=== PATIENT | female | born 1975 | race African-American/Black ===

== ENCOUNTER 2017-07-06 10:53 | Emergency (ER) | payer OTHER ==
[~2017-07-06] VITALS: Ht 157.5 cm; Wt 72.6 kg
[~2017-07-06 10:53] MED LIST: BIAXIN 500 MG500 M2; CLARITIN10 M2 PO; DOXYCYCLINE 10100 MG PO; MEDROLDOSEPACK PO; PEPCID40 MG PO; SINGULAIR 10 MG10 M1 PO; VALACYCLOVIR500 MG; VENTOLIN HFA 1818 GM INH
[2017-07-06] MEDS ORDERED: NAPROSYN500 MG PO (11:18)
[2017-07-06] MEDS ORDERED: HYDROCODONE-AP1 EAC6 PO (11:18)
[2017-07-06 11:31] LABS: ABSOLUTE EOSINOPHILS 0.1 thou/uL (0.0-0.7); ABSOLUTE LYMPHOCYTES 2.2 thou/uL (0.8-5.3); ABSOLUTE MONOCYTES 0.5 thou/uL (0.0-1.2); ABSOLUTE NEUTROPHILS 4.1 thou/uL (1.6-8.1); BASOPHILS 0.5 %; EOSINOPHILS 1.9 %; HEMATOCRIT 42.2 % (37.0-47.0); HEMOGLOBIN 14.4 gm/dL (12.0-15.0); LYMPHOCYTES 31.2 %; MCH 30.8 pg (26.0-34.0); MCHC 34.1 g/dL (28.0-37.0); MCV 90.1 fL (80.0-100.0); MONOCYTES 6.9 %; MPV 8.3 fl. (7.2-11.1); NUCLEATED RBCS 0 /100WBC; PLATELET COUNT* 231 thou/uL (150-400); POLYS 59.5 %; RBC 4.69 mil/uL (4.20-5.00); RDW-CV 12.7 % (10.5-14.5)
[2017-07-06 11:38] LABS: URINE BILIRUBIN NEGATIVE (Negative); URINE BLOOD TRACE (Negative); URINE CLARITY CLEAR; URINE COLOR YELLOW; URINE GLUCOSE-RANDOM NEGATIVE (Negative); URINE KETONES NEGATIVE (Negative); URINE LEUKOCYTES-REFLEX NEGATIVE (Negative); URINE NITRITE-REFLEX NEGATIVE (Negative); URINE PROTEIN TRACE (Negative); URINE UROBILINOGEN 0.2 E.U./dl (0.2-1.0)
[2017-07-06 11:42] LABS: CALCIUM 9.2 mg/dL (8.5-10.1); CREATININE 0.7 mg/dL (0.6-1.3); POTASSIUM 3.9 mmol/L (3.5-5.1)
[2017-07-06 11:46] LABS: ALBUMIN 3.7 g/dL (3.4-5.0); TOTAL BILIRUBIN 0.5 mg/dL (<0.1-1.0); TOTAL PROTEIN 7.3 g/dL (6.4-8.2)
[2017-07-06] MEDS ORDERED: BACTRIM DS TAB1 EACH PO (12:13)
[2017-07-06] MEDS ORDERED: BENTYL 20 MG TA20 M1 PO (12:13)
[2017-07-06 12:44] VITALS: BP 113/76
== END 2017-07-06 12:45 | disposition home or self-care (01) ==
LOC: M.ERS 10:53
PROVIDERS: Emergency Medicine Emergency Medical Services
DX: R19.7 Diarrhea, unspecified (principal); J45.909 Unspecified asthma, uncomplicated; Z90.710 Acquired absence of both cervix and uterus; Z88.1 Allergy status to other antibiotic agents; Z88.0 Allergy status to penicillin

== ENCOUNTER 2017-07-21 13:39 | Emergency (ER) | payer OTHER ==
[~2017-07-21] VITALS: Ht 157.5 cm; Wt 69.0 kg
[~2017-07-21 13:39] MED LIST changes: +BACTRIM DS TAB1 EACH PO; +BENTYL 20 MG TA20 M1 PO; +HYDROCODONE-AP1 EAC6 PO; +NAPROSYN500 MG PO
[2017-07-21] MEDS ORDERED: NORCO 5-325 TA1 EACH PO (16:39)
[2017-07-21] MEDS ORDERED: NAPROSYN500 MG PO (16:39)
[2017-07-21] MEDS ORDERED: DOXYCYCLINE 10100 M1 PO (16:40)
[2017-07-21] MEDS ORDERED: AFRIN30 ML NASAL (16:41)
[2017-07-21 17:01] VITALS: BP 108/73
[2017-07-21] MEDS ORDERED: DIFLUCAN150 MG PO (17:06)
[2017-07-22] MEDS ORDERED: VIT D2 PO (09:04)
[2017-07-22] MEDS ORDERED: REGLAN 10 MG TA10 MG PO (09:05)
[2017-07-22] MEDS ORDERED: ACETAMINOPHEN-1 EAC1 PO (09:05)
[2017-07-22] MEDS ORDERED: BACTRIM DS TAB1 EACH PO (09:05)
== END 2017-07-21 17:01 | disposition home or self-care (01) ==
LOC: M.ERS 13:39
DX: S02.82XA Fracture of other specified skull and facial bones, left side, initial encounter for closed fracture (principal); S01.112A Laceration without foreign body of left eyelid and periocular area, initial encounter; J45.909 Unspecified asthma, uncomplicated; Z90.710 Acquired absence of both cervix and uterus; Z88.1 Allergy status to other antibiotic agents; Z88.0 Allergy status to penicillin; Z88.8 Allergy status to other drugs, medicaments and biological substances; W01.0XXA Fall on same level from slipping, tripping and stumbling without subsequent striking against object, initial encounter; Y93.89 Activity, other specified; Y92.89 Other specified places as the place of occurrence of the external cause; Y99.8 Other external cause status

== ENCOUNTER 2017-07-22 08:46 | Inpatient (IN) | payer OTHER ==
[2017-07-22] VITALS (12 sets, daily range): BP systolic 91–122; BP diastolic 49–80
[~2017-07-22] VITALS: Ht 162.6 cm; Wt 71.7 kg
[~2017-07-22 08:46] MED LIST changes: +AFRIN30 ML NASAL; +DIFLUCAN150 MG PO; +DOXYCYCLINE 10100 M1 PO; +NORCO 5-325 TA1 EACH PO
[2017-07-22] MEDS ORDERED: VIT D2 PO (09:04)
[2017-07-22] MEDS ORDERED: ACETAMINOPHEN-1 EAC1 PO (09:05)
[2017-07-22] MEDS ORDERED: REGLAN 10 MG TA10 MG PO (09:05)
[2017-07-22] MEDS ORDERED: BACTRIM DS TAB1 EACH PO (09:05)
--- NOTE | 2017-07-22 09:55 | NUR ---
DURING STROKE SWALLOW SCREEN PT STATES IT HURTS TO SWALLOW UPON FIRST AND SECOND SIP OF WATER. NO COUGHING, DROOLING OR GAGGING NOTED.
[2017-07-22 09:58] LABS: ABSOLUTE EOSINOPHILS 0.1 thou/uL (0.0-0.7); ABSOLUTE LYMPHOCYTES 1.9 thou/uL (0.8-5.3); ABSOLUTE MONOCYTES 0.4 thou/uL (0.0-1.2); ABSOLUTE NEUTROPHILS 2.8 thou/uL (1.6-8.1); BASOPHILS 0.5 %; EOSINOPHILS 2.4 %; HEMATOCRIT 39.8 % (37.0-47.0); HEMOGLOBIN 13.3 gm/dL (12.0-15.0); MCH 30.1 pg (26.0-34.0); MCHC 33.4 g/dL (28.0-37.0); MCV 90.3 fL (80.0-100.0); MONOCYTES 7.8 %; MPV 8.4 fl. (7.2-11.1); NUCLEATED RBCS 0 /100WBC; PLATELET COUNT* 197 thou/uL (150-400); POLYS 53.3 %; RBC 4.41 mil/uL (4.20-5.00); RDW-CV 12.8 % (10.5-14.5); WBC 5.2 thou/uL (4.0-11.0)
[2017-07-22 10:04] LABS: APTT 25.3 Seconds (25.0-31.3); PROTIME 10.1 Seconds (9.20-11.50)
[2017-07-22 10:45] LABS: ALBUMIN 3.4 g/dL (3.4-5.0); CALCIUM 8.7 mg/dL (8.5-10.1); CREATININE 0.7 mg/dL (0.6-1.3); POTASSIUM 3.5 mmol/L (3.5-5.1); TOTAL BILIRUBIN 0.7 mg/dL (<0.1-1.0); TOTAL PROTEIN 6.7 g/dL (6.4-8.2)
[2017-07-22 10:50] LABS: URINE BILIRUBIN NEGATIVE (Negative); URINE BLOOD TRACE (Negative); URINE CLARITY CLEAR; URINE COLOR YELLOW; URINE GLUCOSE-RANDOM NEGATIVE (Negative); URINE KETONES NEGATIVE (Negative); URINE LEUKOCYTES-REFLEX NEGATIVE (Negative); URINE NITRITE-REFLEX NEGATIVE (Negative); URINE PROTEIN TRACE (Negative); URINE UROBILINOGEN 0.2 E.U./dl (0.2-1.0)
[2017-07-22 10:59] LABS: AMP/METHAMP POSITIVE (Negative); BARBITURATES Negative (Negative); BENZODIAZEPINES Negative (Negative); COCAINE Negative (Negative); METHADONE Negative (Negative); OPIATES POSITIVE (Negative); PCP Negative (Negative); THC Negative (Negative)
--- NOTE | 2017-07-22 14:47 | NUR ---
1410 PT RECEIVED FROM ER PER CART.C/O CIRCUMORAL NUMNESS. SEE ADMISSION ASSESSMENT AND NIH SCORING
--- NOTE | 2017-07-22 15:50 | NUR ---
1500 WORKED WITH OT. TO MRI WITH THIS NURSE
--- NOTE | 2017-07-22 17:32 | NUR ---
PATIENT ADMITTED TO ICU FOR CLOSED HEAD INJURY. VSS. MRI COMPLETED. UNSTEADY WHEN UP. FIANCE AND CHILDREN HAVE VISTED
[2017-07-23] VITALS (12 sets, daily range): BP systolic 80–110; BP diastolic 37–73
--- NOTE | 2017-07-23 04:16 | NUR ---
PROGRESSING TOWARD GOALS. PT HAS BEEN ORIENTED X4 THROUGHOUT THIS SHIFT. SHE CONTINUES TO REPORT DIPLOPIA BUT OTHERWISE NEUROLOGICAL ASSESSMENT IS NEGATIVE. ASSISTED PT TO BSC X1 WITH SBA ONLY, STEADY OF FEET. PT REPORTED 8/10 LEFT MARIO-ORBITAL PAIN, PRN FENTANYL GIVEN ORDERED WITH COMPLETE RELIEF OF PAIN. SIGNIFICANT MARIO-ORBITAL EDEMA WITH BRUISING NOTED, LEFT EYE OPENING IS APPROXIMATELY HALF THAT OF THE RIGHT EYE. SUTURES TO LEFT EYEBROW INTACT, WELL APPROXIMATED WITH NO DRAINAGE. PT TURNS SELF IN BED WITH EASE, ADEQUATE TO RELIEVE PRESSURE. CALL LIGHT WITHIN REACH.
--- NOTE | 2017-07-23 08:55 | NUR ---
0730 ASSUMED CARE OF PATIENT. PLEASE SEE DOCUMENTED ASSESSMENT. HEAPTIC DRAIN DRESSING SATURATED AND CHANGED CHARTED. BATHED. OXYGEN SAT DROPPED TO MID 80'S ON 3LPM NASAL CANNULA DURING BATH. RETURNED TO HOME CPAP WITH 6-7 LPM OXYGEN INPUT. RT NOTIFIED
--- NOTE | 2017-07-23 08:57 | NUR ---
3661 ASSUMED CARE OF PATIENT. PLEASE SEE DOCUMENTED ASSESSMENT. DR BROOKE TO SEE PATIENT. NEUROLOGICAL ASSESSMENT WNL
--- NOTE | 2017-07-23 09:10 | NUR ---
PT IS NOW TELE STATUS
--- NOTE | 2017-07-23 10:18 | NUR ---
PATIENT IS RESTLESS AND WANTING TO LEAVE. FIANCE WANTING PT TO BE PATIENT AND WAIT FOR NEUROLOGY INPUT. PT STATES HER VISION IS NORMAL NOW
--- NOTE | 2017-07-23 11:34 | NUR ---
DR HENAO TO SEE PATIENT AND ORDERS NOTED.
--- NOTE | 2017-07-23 14:04 | NUR ---
EEG COMPLETED. PT INFORMED THAT MRI'S ARE ORDERED FOR AM.
--- NOTE | 2017-07-23 15:31 | NUR ---
PT TO MOVE TO ROOM 305. PATIENT AND SIGNIFICANT OTHER INFORMED OF PLAN TO TRANSFER. SBAR FAXED TO THIRD FLOOR UNIT
--- NOTE | 2017-07-23 16:35 | NUR ---
PATIENT TRANSFERRED TO ROOM 305 VIA WHEELCHAIR FROM ICU AT 1600. LIFE ENRICHMENT DIRECTOR RESUMED. AGREE WITH PREVIOUS ASSESSMENT. SALINE LOCK PATENT. BRUISE NOTED TO LEFT EYE, STATES DOUBLE VISION IS IMPROVED FROM ADMISSION. ICE PACK PROVIDED TO LEFT EYE PER REQUEST AND IBUPROFEN. CALL LIGHT WITHIN REACH. WILL CONTINUE WITH PLAN OF CARE.
--- NOTE | 2017-07-23 18:28 | NUR ---
PATIENT HAS BEEN A/O SINCE TRANSFERRING TO ROOM 305. CONTINUES ON COMMUNITY OUTREACH COORDINATOR, TRACING NSR. UP SBA IN ROOM. MEDICATED FOR HEADACHE WITH GOOD RELIEF. SALINE LOCK PATENT. TOLERATING DIET. TO HAVE MRIs COMPLETED IN AM. HOURLY ROUNDING COMPLETED. CALL LIGHT WITHIN REACH. WILL CONTINUE WITH PLAN OF CARE.
[2017-07-24 00:02] VITALS: BP 107/42
[2017-07-24 04:43] VITALS: BP 107/51
--- NOTE | 2017-07-24 05:41 | NUR ---
PT SLEPT MOST OF SHIFT. ASSESSMENT DOCUMENTED. MEDS GIVEN PER E-MAR. IV PATENT. PT SHOWERED THIS SHIFT. NO REPORTS OF PAIN OR NAUSEA. TELE MONITOR IN PLACE READING SINUS RHYTHYM. WILL CONTINUE WITH PLAN OF CARE.
[2017-07-24 08:00] VITALS: BP 109/58
--- NOTE | 2017-07-24 10:52 | NUR ---
PT'S MEDICAL CHART REVIEWED AND STATUS DISCUSSED W/ NSG. PT IS UP AD ESTEFANY IN ROOM DEMONSTRATING STABLE GAIT AND TRANSFERS. PT INDICATES NO CONCERNS W/ DISCHARGE TO HOME. NO FURTHER ACUTE PT SERVICES ARE INDICATED.
--- NOTE | 2017-07-24 11:06 | NUR ---
ASSUMED CARE THIS AM. A/O, UP AD ESTEFANY, STEADY GAIT. DENIES PAIN, LAC TO LEFT BROW CLEAN/DRY, EDGES APPROX, SUTURES INTACT. MRI COMPLETE, CLEARED WITH NEUROLOGY FOR DISCHARGE, AWAITING HOSPITALIST EVAL/DISCHARGE. D/C PLAN IS TO RETURN TO HOME UNDER SELF CARE WITH AND FAMILY.
--- NOTE | 2017-07-24 13:07 | NUR ---
SW was informed by nurse that pt to dc home today with fiance and to self care. No dc needs expressed. SW to remain available to assist if needs arise.
[2017-07-24 13:32] VITALS: BP 109/58
[2017-07-24 14:21] VITALS: BP 109/58
--- NOTE | 2017-07-25 17:26 | EEG ---
[address] [address] EEG STUDY REPORT Name: TRINA ALEXANDRA Room: [address] IN M.R.#: [id number] Admission: 07/22/17 Attend Phys: Linsey Jung MD Discharge: 07/24/17 Date of : 79 Report #: [id number] THIS REPORT FOR: //name// CC: Linsey Easonnton DATE OF SERVICE: 07/23/2017 This patient is being evaluated for altered mental status after a head injury. EEG was done by placing the electrodes by standard 10/20 system of electrode placement. Both referential and sequential montages were used for recording. Background activity in this patient's EEG is about 10 Hz and 30 microvolts. It is a symmetrical activity. Photic stimulation was unremarkable. Throughout the record, no active epileptiform activity was noticed. IMPRESSION: This patient's EEG is unremarkable. Thank you very much for this referral. <ELECTRONICALLY SIGNED> By: Steve Keane MD 07/25/17 1726 1556 1625Steve Keane MD /nt
--- NOTE | 2017-07-25 17:26 | CON ---
[address] [address] CONSULTATION Name: IBRAHIMAJAMARCUSMARIO Tineo Room: [address] M.R.#: [id number] Admission: 07/22/17 Attend Phys: Linsey Jung MD Discharge: 07/24/17 Date of : 79 Report #: [id number] THIS REPORT FOR: //name// CC: Linsey Abdi DATE OF SERVICE: 07/23/2017 HISTORY OF PRESENT ILLNESS: This is a 41-year-old female patient who was evaluated by me for any neurological etiology for the patient's altered mental status. The patient's records were reviewed and the patient was discussed with the nurses looking after this patient. The patient indicates that she was confused yesterday, but she is getting better. Record indicates that she was seen in the Emergency Room on 07/21/2017. She gives a history that she was having a bowel preparation for colonoscopy. She tripped and fell. It looks like she hit pretty hard and she has a fracture of the orbital area. She is going to see an pleater in that regard. She woke up yesterday with altered mental status. She said she has improved, but not completely back to her baseline. REVIEW OF SYSTEMS: Indicate that she is complaining of some neck pain. This happened after she had this fall. She had a prior history of hysterectomy and Crohn's disease. She also has a prior history of asthma. I carried out 14-point review of system and this was her relevant 14-point review of system. PAST MEDICAL HISTORY: Negative for any seizures or confusion like this. FAMILY HISTORY: Unremarkable. SOCIAL HISTORY: She works at home and she indicates that she is not under much stress. She does not smoke or drink any alcohol. PHYSICAL EXAMINATION: Indicate that she is alert. She is responsive. She can tell me what month it is. She knows an approximate date. Her speech looks unremarkable. Memory is getting better. Fund of knowledge is getting better. Cranial nerve examination 2-12 the best it could be carried appear unremarkable. I believe she can see reasonably well on the left side. She needs a detailed ophthalmological examination later on. Pupil looks symmetrical. She has symmetrical strength, sensation, reflexes and tone in all 4 extremities. There is no meningeal sign. She does complain of some neck pain on the neck movement. There is no carotid bruit. Neuromuscular examination looks symmetrical. Position sense looks intact. Cardiac examinations appear unremarkable. Pulses appear to be palpable. No respiratory difficulty or rhonchi. Blood pressure is running somewhat low at 94/73, respirations 15, pulse is 86, temperature is 98.9. [place] [address] CONSULTATION Name: TRINA ALEXANDRA Room: [address] M.R.#: [id number] Admission: 07/22/17 Attend Phys: Linsey Jung MD Discharge: 07/24/17 Date of : 79 Report #: [id number] LABORATORY DATA: Indicate a normal white count. She did have an MRI of the brain, which looks mostly unremarkable. IMPRESSION: I suspect this patient had concussion when she fell down and she has some postconcussion confusion from which she is becoming better. I do not believe there is any primary central nervous system pathology going on, but she is having multiple symptoms and those include some headache which is also becoming better and some memory issues and some neck pain. Because of that, I think it will be desirable to make sure she does not have any dissections or any neck pathology. All of it is considered less likely. I will also check an EEG because of this performed confusion. If all these tests are normal, then I think neurological cause will be even less likely. RECOMMENDATIONS: 1. MRI of the head and neck. 2. MRI of C-spine. 3. EEG. 4. TSH, vitamin B12. 5. If those things are okay, from neurological perspective, I do not think any further testing is needed. That is especially true if she come back to her baseline. I did discuss with her the need to avoid any further concussions and she understood that. Thank you very much for this referral. <ELECTRONICALLY SIGNED> By: Steve Keane MD 07/25/17 1726 1128 00Steve Keane MD /nt
== END 2017-07-24 16:00 | disposition home or self-care (01) | DRG 564 ==
LOC: M.ERS 08:46 → M.3W 12:37 → M.TBA-ER 12:37 → M.ICU 14:12 → M.3W 07-23 15:47
PROVIDERS: Personal Emergency Response Attendant; ADMIT Internal Medicine
DX: S02.82XA Fracture of other specified skull and facial bones, left side, initial encounter for closed fracture (principal); G93.40 Encephalopathy, unspecified; F07.81 Postconcussional syndrome; J45.909 Unspecified asthma, uncomplicated; Z90.710 Acquired absence of both cervix and uterus; Z88.1 Allergy status to other antibiotic agents; Z88.0 Allergy status to penicillin; Z88.8 Allergy status to other drugs, medicaments and biological substances; X58.XXXA Exposure to other specified factors, initial encounter; Y93.89 Activity, other specified; Y92.89 Other specified places as the place of occurrence of the external cause; W01.0XXA Fall on same level from slipping, tripping and stumbling without subsequent striking against object, initial encounter; Y99.8 Other external cause status; S09.90XD Unspecified injury of head, subsequent encounter

== ENCOUNTER 2017-09-10 01:41 | Emergency (ER) | payer OTHER ==
[~2017-09-10] VITALS: Ht 154.9 cm; Wt 69.4 kg
[~2017-09-10 01:41] MED LIST changes: +ACETAMINOPHEN-1 EAC1 PO; +REGLAN 10 MG TA10 MG PO; +VIT D2 PO
[2017-09-10 03:19] LABS: ABSOLUTE EOSINOPHILS 0.2 thou/uL (0.0-0.7); ABSOLUTE LYMPHOCYTES 1.7 thou/uL (0.8-5.3); ABSOLUTE MONOCYTES 0.4 thou/uL (0.0-1.2); ABSOLUTE NEUTROPHILS 2.7 thou/uL (1.6-8.1); BASOPHILS 0.8 %; EOSINOPHILS 3.4 %; HEMATOCRIT 36.8 % (37.0-47.0); HEMOGLOBIN 12.1 gm/dL (12.0-15.0); MCH 30.2 pg (26.0-34.0); MCV 91.6 fL (80.0-100.0); MONOCYTES 7.7 %; MPV 8.1 fl. (7.2-11.1); NUCLEATED RBCS 0 /100WBC; PLATELET COUNT* 172 thou/uL (150-400); POLYS 54.1 %; RBC 4.02 mil/uL (4.20-5.00); RDW-CV 12.9 % (10.5-14.5)
[2017-09-10 03:27] LABS: CREATININE 0.8 mg/dL (0.6-1.3); POTASSIUM 3.1 mmol/L (3.5-5.1)
[2017-09-10 03:31] LABS: ALBUMIN 3.1 g/dL (3.4-5.0); TOTAL BILIRUBIN 0.3 mg/dL (<0.1-1.0); TOTAL PROTEIN 6.2 g/dL (6.4-8.2)
[2017-09-10] MEDS ORDERED: DUONEB 2.5-0.5 M3 ML INH (04:09)
[2017-09-10] MEDS ORDERED: MEDROLDOSEPACK PO (04:09)
[2017-09-10] MEDS ORDERED: PROAIR HFA8.5 GM PO (04:09)
[2017-09-10] MEDS ORDERED: NEBULIZER MISCELL (04:09)
[2017-09-10 04:45] VITALS: BP 106/61
== END 2017-09-10 04:46 | disposition home or self-care (01) ==
LOC: M.ERS 01:41
PROVIDERS: Personal Emergency Response Attendant
DX: J45.901 Unspecified asthma with (acute) exacerbation (principal); J45.909 Unspecified asthma, uncomplicated; Z90.710 Acquired absence of both cervix and uterus; Z88.1 Allergy status to other antibiotic agents; Z88.0 Allergy status to penicillin; Z88.8 Allergy status to other drugs, medicaments and biological substances

== ENCOUNTER 2017-12-14 16:28 | Emergency (ER) | payer OTHER ==
[~2017-12-14] VITALS: Ht 154.9 cm; Wt 71.2 kg
[~2017-12-14 16:28] MED LIST changes: +DUONEB 2.5-0.5 M3 ML INH; +NEBULIZER MISCELL; +PROAIR HFA8.5 GM PO
[2017-12-14] MEDS ORDERED: ACETAMINOPHEN-1 EAC1 PO (17:53)
[2017-12-14 18:11] VITALS: BP 138/68
== END 2017-12-14 18:12 | disposition home or self-care (01) ==
LOC: M.ERS 16:28
DX: S92.511A Displaced fracture of proximal phalanx of right lesser toe(s), initial encounter for closed fracture (principal); J45.909 Unspecified asthma, uncomplicated; F32.9 Major depressive disorder, single episode, unspecified; Z90.710 Acquired absence of both cervix and uterus; Z88.8 Allergy status to other drugs, medicaments and biological substances; Z88.0 Allergy status to penicillin; Z88.1 Allergy status to other antibiotic agents; X58.XXXA Exposure to other specified factors, initial encounter; Y93.89 Activity, other specified; Y92.89 Other specified places as the place of occurrence of the external cause; Y99.8 Other external cause status

== ENCOUNTER 2018-03-25 07:41 | Emergency (ER) | payer OTHER ==
[~2018-03-25] VITALS: Ht 154.9 cm; Wt 76.2 kg
[2018-03-25 08:34] LABS: URINE BILIRUBIN NEGATIVE (Negative); URINE BLOOD 3+ (Negative); URINE CLARITY CLOUDY; URINE COLOR STRAW; URINE GLUCOSE-RANDOM NEGATIVE (Negative); URINE KETONES NEGATIVE (Negative); URINE LEUKOCYTES-REFLEX 2+ (Negative); URINE NITRITE-REFLEX NEGATIVE (Negative); URINE PROTEIN NEGATIVE (Negative); URINE UROBILINOGEN 0.2 E.U./dl (0.2-1.0)
[2018-03-25 08:42] LABS: SQUAMOUS 0-3 Few /LPF (0-3); URINE WBC-REFLEX >25 Many /HPF (0-5)
[2018-03-25 08:43] LABS: MUCUS None Seen strn/LPF (None Seen); URINE RBC >20 Many /HPF (0-2)
[2018-03-25 08:44] LABS: CASTS None Seen /LPF (None Seen); CRYSTALS None Seen /LPF (None Seen)
[2018-03-25] MEDS ORDERED: CIPROFLOXACIN500 M1 PO (09:11)
[2018-03-25 09:19] VITALS: BP 111/64
== END 2018-03-25 09:19 | disposition home or self-care (01) ==
LOC: M.ERS 07:41
PROVIDERS: Family Medicine
DX: N39.0 Urinary tract infection, site not specified (principal)

== ENCOUNTER 2019-02-10 21:35 | Emergency (ER) | payer OTHER ==
[~2019-02-10] VITALS: Ht 154.9 cm; Wt 73.5 kg
[~2019-02-10 21:35] MED LIST changes: +CIPROFLOXACIN500 M1 PO
[2019-02-10 21:53] LABS: ABSOLUTE BASOPHILS 0.1 thou/uL (0.0-0.2); ABSOLUTE EOSINOPHILS 0.2 thou/uL (0.0-0.7); ABSOLUTE LYMPHOCYTES 2.1 thou/uL (0.8-5.3); ABSOLUTE MONOCYTES 0.5 thou/uL (0.0-1.2); ABSOLUTE NEUTROPHILS 5.4 thou/uL (1.6-8.1); BASOPHILS 0.7 %; EOSINOPHILS 2.3 %; HEMOGLOBIN 13.1 gm/dL (12.0-15.0); LYMPHOCYTES 25.3 %; MCH 30.4 pg (26.0-34.0); MCHC 33.7 g/dL (28.0-37.0); MCV 90.4 fL (80.0-100.0); MONOCYTES 6.2 %; MPV 8.2 fl. (7.2-11.1); NUCLEATED RBCS 0 /100WBC; PLATELET COUNT* 222 thou/uL (150-400); POLYS 65.5 %; RBC 4.31 mil/uL (4.20-5.00); RDW-CV 13.7 % (10.5-14.5); WBC 8.2 thou/uL (4.0-11.0)
[2019-02-10] MEDS ORDERED: TRAZODONE 150150 M1 PO (21:54)
[2019-02-10 22:00] LABS: CALCIUM 8.7 mg/dL (8.5-10.1); CREATININE 0.9 mg/dL (0.6-1.3); POTASSIUM 3.5 mmol/L (3.5-5.1)
[2019-02-10 22:05] LABS: ALBUMIN 3.5 g/dL (3.4-5.0); TOTAL BILIRUBIN 0.5 mg/dL (<0.1-1.0); TOTAL PROTEIN 7.2 g/dL (6.4-8.2)
[2019-02-10 22:06] LABS: SALICYLATE < 2.8 mg/dL (2.8-20.0)
[2019-02-10 22:07] LABS: ACETAMINOPHEN < 2 ug/mL (10-30); ALCOHOL < 10 mg/dL (<10)
[2019-02-10 22:08] LABS: URINE BILIRUBIN NEGATIVE (Negative); URINE BLOOD NEGATIVE (Negative); URINE CLARITY CLEAR; URINE COLOR YELLOW; URINE GLUCOSE-RANDOM NEGATIVE (Negative); URINE KETONES NEGATIVE (Negative); URINE LEUKOCYTES-REFLEX NEGATIVE (Negative); URINE NITRITE-REFLEX NEGATIVE (Negative); URINE PROTEIN NEGATIVE (Negative); URINE SPECIFIC GRAVITY >= 1.030 (1.005-1.030); URINE UROBILINOGEN 0.2 E.U./dl (0.2-1.0)
[2019-02-10 22:16] LABS: AMP/METHAMP Negative (Negative); BARBITURATES Negative (Negative); BENZODIAZEPINES Negative (Negative); COCAINE Negative (Negative); METHADONE Negative (Negative); OPIATES Negative (Negative); PCP Negative (Negative); THC Negative (Negative)
[2019-02-11] MEDS ORDERED: TOPAMAX100 MG PO (11:58)
[2019-02-11 17:10] VITALS: BP 93/60
== END 2019-02-11 17:19 ==
LOC: M.ERS 21:35
PROVIDERS: Emergency Medicine
DX: R45.851 Suicidal ideations (principal); F32.9 Major depressive disorder, single episode, unspecified; J45.909 Unspecified asthma, uncomplicated; Z90.710 Acquired absence of both cervix and uterus; Z85.43 Personal history of malignant neoplasm of ovary; Z88.1 Allergy status to other antibiotic agents; Z88.0 Allergy status to penicillin

== ENCOUNTER 2019-03-13 21:28 | Emergency (ER) | payer OTHER ==
[~2019-03-13] VITALS: Ht 154.9 cm; Wt 73.9 kg
[~2019-03-13 21:28] MED LIST changes: +TOPAMAX100 MG PO; +TRAZODONE 150150 M1 PO
[2019-03-13] MEDS ORDERED: METFORMIN HCL500 M3 PO (21:46)
[2019-03-13] MEDS ORDERED: VITAMIN D310 MCG PO (21:47)
[2019-03-13] MEDS ORDERED: FEXOFENADINE-P1 EACH PO (21:48)
[2019-03-13] MEDS ORDERED: CLONAZEPAM 0.50.5 M1 PO (21:48)
[2019-03-13] MEDS ORDERED: ABILIFY10 MG PO (21:48)
[2019-03-13] MEDS ORDERED: DEPAKOTE ER500 M1 PO (21:49)
[2019-03-13] MEDS ORDERED: ZOFRAN ODT4 MG PO (21:49)
[2019-03-13] MEDS ORDERED: BUTALB-APAP-CA1 EACH PO (21:49)
[2019-03-13] MEDS ORDERED: DULCOLAX STOOL100 M1 PO (21:49)
[2019-03-13] MEDS ORDERED: INTERMEZZO3.5 MG SUBLING (21:49)
[2019-03-13 22:10] LABS: ABSOLUTE BASOPHILS 0.1 thou/uL (0.0-0.2); ABSOLUTE EOSINOPHILS 0.1 thou/uL (0.0-0.7); ABSOLUTE LYMPHOCYTES 2.1 thou/uL (0.8-5.3); ABSOLUTE MONOCYTES 0.5 thou/uL (0.0-1.2); ABSOLUTE NEUTROPHILS 4.2 thou/uL (1.6-8.1); EOSINOPHILS 1.7 %; HEMATOCRIT 36.9 % (37.0-47.0); HEMOGLOBIN 12.6 gm/dL (12.0-15.0); LYMPHOCYTES 30.2 %; MCH 31.3 pg (26.0-34.0); MCHC 34.1 g/dL (28.0-37.0); MONOCYTES 7.4 %; NUCLEATED RBCS 0 /100WBC; PLATELET COUNT* 187 thou/uL (150-400); POLYS 59.7 %; RBC 4.01 mil/uL (4.20-5.00); RDW-CV 14.3 % (10.5-14.5)
[2019-03-13 22:22] LABS: APTT 24.3 Seconds (25.0-31.3); CALCIUM 8.2 mg/dL (8.5-10.1); CREATININE 0.8 mg/dL (0.6-1.3); INR 0.9; PROTIME 8.9 Seconds (9.20-11.50)
[2019-03-13 22:26] LABS: ALBUMIN 3.1 g/dL (3.4-5.0); TOTAL BILIRUBIN 0.2 mg/dL (<0.1-1.0); TOTAL PROTEIN 6.6 g/dL (6.4-8.2)
[2019-03-13 22:34] LABS: AMP/METHAMP POSITIVE (Negative); BARBITURATES POSITIVE (Negative); BENZODIAZEPINES Negative (Negative); COCAINE Negative (Negative); METHADONE Negative (Negative); OPIATES Negative (Negative); PCP Negative (Negative); THC Negative (Negative)
[2019-03-14] MEDS ORDERED: CARAFATE 1 GM TA1 GM PO (00:04)
[2019-03-14] MEDS ORDERED: HYDROCODON-ACE1 EAC7 PO (00:04)
[2019-03-14] MEDS ORDERED: TORADOL 10 MG T10 MG PO (00:05)
[2019-03-14 00:15] VITALS: BP 120/70
--- NOTE | 2019-03-14 15:55 | EKG ---
[place] [address] ELECTROCARDIOGRAM REPORT Name: IBRAHIMATRINA Noman Room: [facility]#: [id number] Admission: 03/13/19 Attend Phys: Discharge: 03/14/19 Date of : 79 Report #: [id number] THIS REPORT FOR: //name// [facility] ED Test Date: 2019-03-13 Test Time: 21:33:46 Pat Name: TRINA ALEXANDRA Department: Room: Gender: F Senior Etl Developer: ABIEL : 1975 Requested By: Vee Pimentel Order Number: [id number] MD: Aldo Sifuentes Measurements Intervals [place] Rate: 88 P: 60 PA: 128 QRS: 63 QRSD: 78 T: 33 QT: 368 QTc: 446 Interpretive Statements Sinus rhythm No previous ECG available for comparison Electronically Signed On 03-14-2019 15:55:29 PAPER CONE GRADER by Aldo Sifuentes [email or web address] <ELECTRONICALLY SIGNED> By: Aldo Sifuentes MD, [facility] 03/14/19 1555 2133 2133 Aldo Sifuentes MD, FACC /EPI
== END 2019-03-14 00:15 | disposition home or self-care (01) ==
LOC: M.ERS 21:28
PROVIDERS: Personal Emergency Response Attendant
DX: M94.0 Chondrocostal junction syndrome [Tietze] (principal); J45.909 Unspecified asthma, uncomplicated; F32.9 Major depressive disorder, single episode, unspecified; Z85.43 Personal history of malignant neoplasm of ovary; Z88.1 Allergy status to other antibiotic agents; Z90.710 Acquired absence of both cervix and uterus; Z88.0 Allergy status to penicillin; Z88.8 Allergy status to other drugs, medicaments and biological substances

== ENCOUNTER → 2020-05-20 | Outpatient (CLI) | payer OTHER ==
[~2020-05-20] MED LIST changes: +ABILIFY10 MG PO; +BUTALB-APAP-CA1 EACH PO; +CARAFATE 1 GM TA1 GM PO; +CLONAZEPAM 0.50.5 M1 PO; +DEPAKOTE ER500 M1 PO; +DULCOLAX STOOL100 M1 PO; +FEXOFENADINE-P1 EACH PO; +HYDROCODON-ACE1 EAC7 PO; +INTERMEZZO3.5 MG SUBLING; +METFORMIN HCL500 M3 PO; +TORADOL 10 MG T10 MG PO; +VITAMIN D310 MCG PO; +ZOFRAN ODT4 MG PO
== END ==
LOC: M.RAD 13:00
PROVIDERS: ATTEND Internal Medicine
DX: Z12.31 Encounter for screening mammogram for malignant neoplasm of breast (principal)

== ENCOUNTER 2020-10-28 21:57 | Emergency (ER) | payer OTHER ==
[~2020-10-28] VITALS: Ht 157.5 cm; Wt 72.6 kg
[2020-10-28] MEDS ORDERED: NORFLEX100 MG PO (22:17)
[2020-10-28] MEDS ORDERED: NAPROSYN500 MG PO (22:17)
[2020-10-28 22:26] VITALS: BP 124/56
== END 2020-10-28 22:25 | disposition home or self-care (01) ==
LOC: M.ERS 21:57
DX: S13.4XXA Sprain of ligaments of cervical spine, initial encounter (principal); J45.909 Unspecified asthma, uncomplicated; Z90.710 Acquired absence of both cervix and uterus; Z88.0 Allergy status to penicillin; Z88.1 Allergy status to other antibiotic agents; V43.52XA Car driver injured in collision with other type car in traffic accident, initial encounter; Y93.I9 Activity, other involving external motion; Y92.481 Parking lot as the place of occurrence of the external cause; Y99.8 Other external cause status

== ENCOUNTER 2020-12-23 20:38 | Emergency (ER) | payer OTHER ==
[~2020-12-23] VITALS: Ht 154.9 cm; Wt 67.6 kg
[~2020-12-23 20:38] MED LIST changes: +NORFLEX100 MG PO
[2020-12-23 23:58] LABS: ABSOLUTE BASOPHILS 0.1 thou/uL (0.0-0.2); ABSOLUTE EOSINOPHILS 0.2 thou/uL (0.0-0.7); ABSOLUTE MONOCYTES 0.4 thou/uL (0.0-1.2); ABSOLUTE NEUTROPHILS 3.9 thou/uL (1.6-8.1); BASOPHILS 0.8 %; EOSINOPHILS 2.7 %; HEMATOCRIT 41.4 % (37.0-47.0); HEMOGLOBIN 13.7 gm/dL (12.0-15.0); LYMPHOCYTES 30.4 %; MCH 30.4 pg (26.0-34.0); MCHC 33.2 g/dL (28.0-37.0); MCV 91.8 fL (80.0-100.0); MONOCYTES 6.8 %; MPV 8.1 fl. (7.2-11.1); NUCLEATED RBCS 0 /100WBC; PLATELET COUNT* 212 thou/uL (150-400); POLYS 59.3 %; RBC 4.51 mil/uL (4.20-5.00); RDW-CV 13.5 % (10.5-14.5); WBC 6.6 thou/uL (4.0-11.0)
[2020-12-24 00:03] LABS: CALCIUM 8.4 mg/dL (8.5-10.1); CREATININE 0.8 mg/dL (0.6-1.3)
[2020-12-24 00:14] LABS: ALBUMIN 3.5 g/dL (3.4-5.0); TOTAL BILIRUBIN 0.4 mg/dL (<0.1-1.0); TOTAL PROTEIN 6.9 g/dL (6.4-8.2)
[2020-12-24 01:18] LABS: URINE BILIRUBIN NEGATIVE (Negative); URINE BLOOD NEGATIVE (Negative); URINE CLARITY CLEAR; URINE COLOR YELLOW; URINE GLUCOSE-RANDOM NEGATIVE (Negative); URINE KETONES NEGATIVE (Negative); URINE LEUKOCYTES-REFLEX NEGATIVE (Negative); URINE NITRITE-REFLEX NEGATIVE (Negative); URINE PROTEIN NEGATIVE (Negative); URINE SPECIFIC GRAVITY 1.025 (1.005-1.030); URINE UROBILINOGEN 0.2 E.U./dl (0.2-1.0)
[2020-12-24] MEDS ORDERED: PROAIR HFA8.5 GM INH (02:11)
[2020-12-24 02:30] VITALS: BP 120/64
--- NOTE | 2020-12-24 10:53 | EKG ---
[place] [address] ELECTROCARDIOGRAM REPORT Name: TRINA SCOTT Room: [facility]#: [id number] Admission: 12/23/20 Attend Phys: Discharge: 12/24/20 Date of : 79 Date of Service: 12/23/202110 Report #: [id number] THIS REPORT FOR: //name// [facility] ED Test Date: 2020-12-23 Test Time: 21:11:16 Pat Name: TRINA SCOTT Department: Room: Gender: Wine Fermenter: : 1975 Requested By: Izabella Aguilar Order Number: [id number] MD: Feliciano Herbert Measurements Intervals [place] Rate: 90 P: 65 TN: 122 QRS: 50 QRSD: 76 T: 46 QT: 367 QTc: 449 Interpretive Statements Sinus rhythm Compared to ECG 03/13/2019 21:33:46 No significant changes Electronically Signed On 12-24-2020 10:52:52 CDT by Feliciano Herbert [email or web address] <ELECTRONICALLY SIGNED> By: Feliciano Herbert MD, [facility] 12/24/20 1052 10 10 Feliciano Herbert MD, FAC /EPI
== END 2020-12-24 02:30 | disposition home or self-care (01) ==
LOC: M.ERS 20:38
PROVIDERS: Emergency Medicine
DX: R60.9 Edema, unspecified (principal); Z20.822 Contact with and (suspected) exposure to COVID-19; J45.909 Unspecified asthma, uncomplicated; F32.9 Major depressive disorder, single episode, unspecified; Z90.710 Acquired absence of both cervix and uterus; Z79.899 Other long term (current) drug therapy; Z88.0 Allergy status to penicillin; Z88.1 Allergy status to other antibiotic agents; Z88.8 Allergy status to other drugs, medicaments and biological substances

== ENCOUNTER 2021-03-25 07:16 | Emergency (ER) | payer OTHER ==
[~2021-03-25] VITALS: Ht 154.9 cm; Wt 67.6 kg
[~2021-03-25 07:16] MED LIST changes: +PROAIR HFA8.5 GM INH
[2021-03-25 09:05] VITALS: BP 124/82
--- NOTE | 2021-03-26 09:22 | EKG ---
[place] [address] ELECTROCARDIOGRAM REPORT Name: TRINA SCOTT Room: [facility]#: [id number] Admission: 03/25/21 Attend Phys: Discharge: 03/25/21 Date of : 79 Date of Service: 03/25/21 0740 Report #: [id number] THIS REPORT FOR: //name// [facility] ED Test Date: 2021-03-25 Test Time: 07:40:11 Pat Name: TRINA SCOTT Department: Room: Gender: All Round Logger: : 1975 Requested By: Nick Yanes Order Number: [id number] MD: Aldo Sifuentes Measurements Intervals [place] Rate: 83 P: 75 AR: 127 QRS: 57 QRSD: 79 T: 40 QT: 388 QTc: 456 Interpretive Statements Sinus rhythm Baseline wander in lead(s) II,III,aVF Compared to ECG 12/23/2020 21:11:16 No significant changes Electronically Signed On 03-26-2021 9:22:24 SENIOR CONTROL SYSTEMS ENGINEER by Aldo Sifuentes [email or web address] <ELECTRONICALLY SIGNED> By: Aldo Sifuentes MD, FAC 03/26/21 0922 0740 0740 Aldo Sifuentes MD, [facility] /EPI
== END 2021-03-25 09:10 | disposition home or self-care (01) ==
LOC: M.ERS 07:16
DX: G43.909 Migraine, unspecified, not intractable, without status migrainosus (principal); T43.595A Adverse effect of other antipsychotics and neuroleptics, initial encounter; R11.2 Nausea with vomiting, unspecified; H53.8 Other visual disturbances; J45.909 Unspecified asthma, uncomplicated; F32.9 Major depressive disorder, single episode, unspecified; Z85.43 Personal history of malignant neoplasm of ovary; Z90.711 Acquired absence of uterus with remaining cervical stump; Z79.899 Other long term (current) drug therapy; Z88.1 Allergy status to other antibiotic agents; Z88.0 Allergy status to penicillin; Z88.8 Allergy status to other drugs, medicaments and biological substances; Y92.89 Other specified places as the place of occurrence of the external cause